=== PATIENT | male | born 1940 | race Caucasian/White ===

== ENCOUNTER 2016-06-06 14:38 | Emergency (ER) | payer OTHER ==
[~2016-06-06] VITALS: Ht 160 cm; Wt 88.0 kg
[~2016-06-06 14:38] MED LIST: APIX5TAB PO; CARV12.5 PO; CARV12.52 PO; DYAZ PO; DYAZ37.57 PO; FERR325T PO; FURO1TAB93 PO; FURO20 PO; LISI-363 PO; LISI40TA PO; POTA-243 PO; PRAV80 PO; STOO100C PO; ULTR50TA PO; VITA500S3 PO; VITA500T49 PO
[2016-06-06 14:49] VITALS: BP 161/114; PULSE 88; RESP 20; TEMP 97.8; O2SAT 94
[2016-06-06] MEDS ORDERED: FLUT1SPR5 EACH NARE (15:14)
[2016-06-06] MEDS ORDERED: PRAV80TA PO (15:14)
[2016-06-06] MEDS ORDERED: APIX5TAB PO (15:14)
[2016-06-06] MEDS ORDERED: LISI-515 PO (15:14)
[2016-06-06] MEDS ORDERED: CART120C PO (15:14)
[2016-06-06] MEDS ORDERED: CLOB0.055 TOPICAL (15:14)
[2016-06-06] MEDS ORDERED: CORE25TA PO (15:14)
[2016-06-06] MEDS ORDERED: UMEC1AER INH (15:14)
[2016-06-06] MEDS ORDERED: FURO40TA PO (15:14)
[2016-06-06] MEDS ORDERED: SODIUM CHLORIDE 0.9% FLUSH 5 ML FLUSH IVF PRN (15:15)
[2016-06-06] MEDS ORDERED: FERR1TAB58 PO (15:15)
[2016-06-06] MEDS ORDERED: FUROSEMIDE 100 MG/10 ML VIAL IVP ONE (15:15)
--- NOTE | 2016-06-06 15:15 | PD ---
HPI Chief Complaint: Edema Time Seen by Provider: 14:57 Travel History International Travel<30 days: No Contact w/Intl Traveler<30days: No Traveled to known affect area: No History of Present Illness HPI This patient complains of fluid overload as well as injuries from a fall. He reports that he got a room spinning dizziness yesterday and that caused him to lose his balance and fall. He got this when he bent over rapidly. He landed and hit his head. He does complain of headache and some neck pain. He also injured his left foot and has pain and bruising there. He admits to noncompliance with his diuretics. He reports that his legs and abdominal wall are swollen a little bit more than usual. He is not short of breath. Symptoms severity is moderate. No alleviating factors. He denies any dizziness now. He does take a blood thinner due to ARocio fib PFSH Past Medical History Hx Anticoagulant Therapy: Yes Anemia: Yes Arthritis: Yes Asthma: No Atrial Fibrillation: Yes Autoimmune Disease: No Anxiety: No Depression: No Heart Rhythm Problems: Yes Cancer: No Cardiovascular Problems: Yes High Cholesterol: Yes Chemotherapy: No Chest Pain: Yes Congestive Heart Failure: Yes COPD: No Cerebrovascular Accident: No Diabetes: No Diminished Hearing: No Endocrine: No GERD: Yes Genitourinary: Yes Hepatitis: No Hiatal Hernia: No Hypertension: Yes Immune Disorder: No Kidney Stones: No Musculoskeletal: No Neurologic: No Psychiatric: No Reproductive: No Respiratory: Yes Migraines: No Myocardial Infarction: No Radiation Therapy: No Renal Failure: Yes (ACUTE ON CHRONIC THIS ADMISSION) Seizures: No Sickle Cell Disease: No Sleep Apnea: No Thyroid Disease: No Ulcer: No Past Surgical History Abdominal Surgery: Yes (explor surgery, r/o blockage of bowel ) AICD: No Appendectomy: Yes Arteriovenous Shunt: No Cardiac Surgery: No Ear Surgery: No Endocrine Surgery: No Eye Surgery: Yes (cataracts both eyes repaired) Genitourinary Surgery: No Gynecologic Surgery: No Insulin Pump: No Joint Replacement: Yes (left knee x2) Oral Surgery: No Pacemaker: No Thoracic Surgery: No Other Surgery: Yes (LEFT UPPER ARM FATTY TUMOR REMOVED) Social History Alcohol Use: Yes (occas. beer) Tobacco Use: Yes (2-3 cigars a day) Substance Use: No Allergies-Medications (Allergen,Severity, Reaction): Coded Allergies: No Known Allergies (Verified , 06/06/16) Reported Meds & Prescriptions Reported Meds & Active Scripts Active Reported Iron (Ferrous Sulfate) 50 Mg Tab 50 Mg PO DAILY Anoro Ellipta Inh (Umeclidinium/Vilanterol) 62.5-25 Mcg/Act Aero 1 Puff INH DAILY Cartia Xt (Diltiazem ER 24 HR) 120 Mg Caper 120 Mg PO DAILY Flonase Allergy Relief Nasal Saxe (Fluticasone Nasal Saxe) 50 Mcg/Act Saxe 50 Mcg EACH NARE BID Furosemide 40 Mg Tab 40 Mg PO DAILY Eliquis (Apixaban) 5 Mg Tab 5 Mg PO BID Coreg (Carvedilol) 25 Mg Tab 25 Mg PO BID Lisinopril 20 Mg Tab 20 Mg PO BID Clobetasol Topical (Clobetasol Propionate) 0.05% Cream 1 Applic TOPICAL BID Review of Systems General / Constitutional: No: Fever Eyes: No: Visual changes HENT: Positive: Vertigo, Lightheadedness, No: Headaches Cardiovascular: Positive: Edema, No: Chest Pain or Discomfort Respiratory: No: Shortness of Breath Gastrointestinal: No: Abdominal Pain Genitourinary: No: Dysuria Musculoskeletal: Positive: Arthralgias, Edema, Pain Skin: No Rash Neurologic: No: Weakness Psychiatric: No: Depression Endocrine: No: Polydipsia Hematologic/Lymphatic: No: Easy Bruising Physical Exam Narrative GENERAL: Well-nourished, well-developed patient with ecchymosis of the head and neck and left foot . SKIN: Warm and dry. HEAD: Ecchymosis and swollen area to the left parietal region. Normocephalic. EYES: Pupils equal and round. No scleral icterus. No injection or drainage. ENT: No nasal bleeding or discharge. Mucous membranes pink and moist. NECK: Trachea midline. No JVD. No midline tenderness. There is some ecchymosis to the posterior neck. CARDIOVASCULAR: Regular rate and rhythm. No murmur appreciated. RESPIRATORY: No accessory muscle use. Clear to auscultation. Breath sounds equal bilaterally. GASTROINTESTINAL: Abdomen soft, non-tender, nondistended. Hepatic and splenic margins not palpable. MUSCULOSKELETAL: No obvious deformities. No clubbing. No cyanosis. Pitting edema of the feet and legs as well as some edema of the abdominal wall in the lower portion and scrotal edema. NEUROLOGICAL: Awake and alert. No obvious cranial nerve deficits. Motor grossly within normal limits. Normal speech. PSYCHIATRIC: Appropriate mood and affect; insight and judgment normal. Data Data Last Documented VS Vital Signs Date Time Temp Pulse Resp B/P Pulse Ox O2 Delivery O2 Flow Rate FiO2 06/06/16 16:34 74 20 171/95 99 Room Air 06/06/16 14:49 97.8 Orders Complete Blood Count With Diff (06/06/16 15:07) Basic Metabolic Panel (Bmp) (06/06/16 15:07) Iv Access Insert/Monitor (06/06/16 15:07) Ecg Monitoring (06/06/16 15:07) Oximetry (06/06/16 15:07) Sodium Chloride 0.9% Flush (Ns Flush) (06/06/16 15:15) Furosemide Inj (Lasix Inj) (06/06/16 15:15) Ct Brain W/O Iv Contrast(Rout) (06/06/16 ) Ct Cerv Spine W/O Contrast (06/06/16 ) Foot, Complete ([id number]) (06/06/16 ) Clonidine (Catapres) (06/06/16 15:45) Labs Laboratory Tests Test 06/06/16 15:45 White Blood Count 6.5 TH/MM3 Red Blood Count 3.98 MIL/MM3 Hemoglobin 12.4 GM/DL Hematocrit 38.1 % Mean Corpuscular Volume 95.6 FL Mean Corpuscular Hemoglobin 31.2 PG Mean Corpuscular Hemoglobin 32.7 % Concent Red Cell Distribution Width 15.1 % Platelet Count 168 TH/MM3 Mean Platelet Volume 8.8 FL Neutrophils (%) (Auto) 74.6 % Lymphocytes (%) (Auto) 12.6 % Monocytes (%) (Auto) 11.4 % Eosinophils (%) (Auto) 1.1 % Basophils (%) (Auto) 0.3 % Neutrophils # (Auto) 4.9 TH/MM3 Lymphocytes # (Auto) 0.8 TH/MM3 Monocytes # (Auto) 0.7 TH/MM3 Eosinophils # (Auto) 0.1 TH/MM3 Basophils # (Auto) 0.0 TH/MM3 CBC Comment DIFF FINAL Differential Comment Sodium Level 146 MEQ/L Potassium Level 3.5 MEQ/L Chloride Level 106 MEQ/L Carbon Dioxide Level 33.9 MEQ/L Anion Gap 6 MEQ/L Blood Urea Nitrogen 32 MG/DL Creatinine 1.20 MG/DL Estimat Glomerular Filtration 59 ML/MIN Rate Random Glucose 84 MG/DL Calcium Level 9.2 MG/DL MDM Medical Decision Making Medical Screen Exam Complete: Yes Emergency Medical Condition: Yes Medical Record Reviewed: Yes Differential Diagnosis Anasarca, noncompliance, intracranial hemorrhage, foot fracture Narrative Course I have reviewed the patient's electronic medical record. 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 I advised him to review this with his boss and maybe get reassigned to a new post. He need to be compliant with diuretics Diagnosis Primary Impression: Head injury due to trauma Qualified Code: S09.90XA - Head injury due to trauma, initial encounter Additional Impression: Anasarca Additional Instructions: The patient was advised to follow up with their physician and return if they worsen. Be compliant with diuretics Med/Other Pt SpecificInfo: Other Disposition: 01 DISCHARGE HOME Condition: Stable Dougie Dow MD Jun 06, 2016 15:15
[2016-06-06 15:22] VITALS: RESP 20; O2SAT 93
--- NOTE | 2016-06-06 15:37 | RADHPO ---
EXAM DATE/TIME: 06/06/2016 15:10 [facility] COMPARISON: US KIDNEY/RENAL/BLADDER, July 28, 2015, 17:07. INDICATIONS : Left foot pain/swelling after falling MEDICAL HISTORY : Edema SURGICAL HISTORY : None. ENCOUNTER: Initial ACUITY: 1 day PAIN SCORE: 7/10 LOCATION: Left foot FINDINGS: Three view examination of the left foot demonstrates no dislocation or fracture. There is extensive soft tissue edema in the left lower extremity and particularly overlying the metatarsal heads. No ev idence of free opaque foreign body. The tarsal bones appear intact. The interphalangeal and metatars ophalangeal joints are intact. The calcaneus is intact. Bony mineralization is normal. CONCLUSION: Extensive soft tissue edema without evidence of underlying fracture or foreign body.. Savannah Christianson MD on June 06, 2016 at 15:33 Board Certified Radiologist. This report was verified electronically.
--- NOTE | 2016-06-06 15:44 | RADHPO ---
EXAM DATE/TIME: 06/06/2016 15:27 [facility] COMPARISON: No previous studies available for comparison. INDICATIONS : Fall, dizziness. RADIATION DOSE: 55.17 CTDIvol (mGy) MEDICAL HISTORY : Cardiovascular disease. Hypertension. Renal failure, acute. SURGICAL HISTORY : None. ENCOUNTER: Initial ACUITY: 1 day PAIN SCALE: 4/10 LOCATION: cranial TECHNIQUE: Multiple contiguous axial images were obtained of the head. Using automated exposure control and adj ustment of the mA and/or kV according to patient size, radiation dose was kept as low as reasonably a chievable to obtain optimal diagnostic quality images. FINDINGS: CEREBRUM: The ventricles are normal for age. No evidence of midline shift, mass lesion, hemorrhage or acute in farction. No extra-axial fluid collections are seen. POSTERIOR FOSSA: The cerebellum and brainstem are intact. The 4th ventricle is midline. The cerebellopontine angle i s unremarkable. EXTRACRANIAL: The visualized portion of the orbits is intact. SKULL: The calvaria is intact. No evidence of skull fracture. CONCLUSION: Normal examination for a patient of this age. Savannah Christianson MD on June 06, 2016 at 15:42 Board Certified Radiologist. This report was verified electronically.
[2016-06-06] MEDS ORDERED: cloNIDine HCL 0.2 MG TAB PO ONE (15:45)
[2016-06-06 15:57] LABS: AUTOMATED NEUTROPHIL # 4.9 TH/MM3 (1.8-7.7); BASOPHIL % 0.3 % (0.0-2.0); EOSINOPHIL # 0.1 TH/MM3 (0-0.4); EOSINOPHIL % 1.1 % (0.0-4.0); HEMATOCRIT 38.1 % (39.0-51.0); HEMO FLAGS DIFF FINAL; LYMPH % 12.6 % (9.0-44.0); LYMPHOCYTE # 0.8 TH/MM3 (1.0-4.8); MEAN CELL VOLUME 95.6 FL (80.0-100.0); MEAN CORPUSCULAR HEMOGLOBIN 31.2 PG (27.0-34.0); MEAN CORPUSCULAR HGB CONC 32.7 % (32.0-36.0); MONO % 11.4 % (0.0-8.0); NEUT % 74.6 % (16.0-70.0); PLATELET COUNT 168 TH/MM3 (150-450); RED BLOOD COUNT 3.98 MIL/MM3 (4.50-5.90); RED CELL DISTRIBUTION WIDTH 15.1 % (11.6-17.2); WHITE BLOOD COUNT 6.5 TH/MM3 (4.0-11.0)
[2016-06-06 16:02] VITALS: BP 195/104; PULSE 80; RESP 20; O2SAT 100
[2016-06-06 16:04] LABS: POTASSIUM 3.5 MEQ/L (3.5-5.1)
[2016-06-06 16:09] LABS: BICARBONATE 33.9 MEQ/L (21.0-32.0)
--- NOTE | 2016-06-06 16:17 | RADHPO ---
EXAM DATE/TIME: 06/06/2016 15:27 [facility] COMPARISON: No previous studies available for comparison. INDICATIONS : Fall neck pain. RADIATION DOSE: 26.10 CTDIvol (mGy) MEDICAL HISTORY : Cardiovascular disease. Hypertension. Renal failure, acute. SURGICAL HISTORY : None. ENCOUNTER: Initial ACUITY: 1 day PAIN SCALE: 5/10 LOCATION: neck TECHNIQUE: Volumetric scanning of the cervical spine was performed. Multiplanar reconstructions in the sagittal, coronal and oblique axial planes were performed. Using automated exposure control and adjustment o f the mA and/or kV according to patient size, radiation dose was kept as low as reasonably achievable to obtain optimal diagnostic quality images. FINDINGS: VERTEBRAE: Normal vertebral body height. ALIGNMENT: No evidence of subluxation. There is loss of the normal cervical lordosis. Bony productive changes fr om C4-C7 cause mild narrowing of the spinal canal in AP dimension. C2-C3: The bony spinal canal is normal in size. No evidence of disc bulge or herniation. The neural forami na are bilaterally patent. C3-C4: Degenerative disc changes at left-sided facet degenerative changes continue to significant osseous le ft-sided neural foraminal narrowing and mild narrowing of the spinal canal in AP dimension.. C4-C5: Degenerative disc contribute to mild narrowing of the spinal canal in the AP dimension and mild narro wing of the neural foramina bilaterally... C5-C6: The bony spinal canal is normal in size. The focal posterior central disc osteophyte complex causes m inimal narrowing of the spinal canal in AP dimension. . The neural foramina are bilaterally patent. C6-C7: The bony spinal canal is normal in size. No evidence of disc bulge or herniation. The neural forami na are bilaterally patent. C7-T1: The bony spinal canal is normal in size. No evidence of disc bulge or herniation. The neural forami na are bilaterally patent. CONCLUSION: No evidence of insufficiency fracture. Degenerative changes of the cervical spine which contribute to mild narrowing of the spinal canal and varying degrees of left-sided neural foraminal narrowing.. Savannah Christianson MD on June 06, 2016 at 16:11 Board Certified Radiologist. This report was verified electronically.
[2016-06-06 16:34] VITALS: BP 171/95; PULSE 74; RESP 20; O2SAT 99
== END 2016-06-06 17:11 | disposition home or self-care (01) ==
LOC: PHED 14:38
DX: S09.90XA Unspecified injury of head, initial encounter (principal); R60.1 Generalized edema; M79.672 Pain in left foot; M54.2 Cervicalgia; Z79.01 Long term (current) use of anticoagulants; I48.91 Unspecified atrial fibrillation; E78.00 Pure hypercholesterolemia, unspecified; I50.9 Heart failure, unspecified; I10 Essential (primary) hypertension; W18.30XA Fall on same level, unspecified, initial encounter; Y93.9 Activity, unspecified
CPT/HCPCS: 70450; 72125; 73630; 80048; 85025; 96374; 99284; J1940